=== PATIENT | male | born 1955 | race Caucasian/White ===

== ENCOUNTER 2018-02-27 08:46 | Day surgery (SDC) | payer OTHER ==
[2018-02-26 17:50] VITALS: BMI 37.2
[2018-02-27] MEDS ORDERED: Oxymetazoline HCl 0.05% ( 15 ML ) ONE ×2 (10:51→12:19)
[2018-02-27] MEDS ORDERED: Lidocaine 1% w/Epinephrine 1:100K 30 ML VIAL ONE (12:19)
[2018-02-27] MEDS ORDERED: Fentanyl 100 MCG/2 ML VIAL ONE ×4 (12:25→15:40)
[2018-02-27] MEDS ORDERED: Famotidine/PF 20 mg/2ml Vial ONE (12:58)
[2018-02-27] MEDS ORDERED: Bacitracin Zinc Ointment 30 gm TUBE ONE (13:05)
[2018-02-27] MEDS ORDERED: Promethazine HCl 25 MG/ML VIAL ONE (14:14)
[2018-02-27] MEDS ORDERED: HYDROcodone/Acetaminophen 5/325 mg Tablet ONE (16:25)
--- NOTE | 2018-02-28 10:22 | OP ---
DATE OF PROCEDURE: 02/27/2018 PREOPERATIVE DIAGNOSES: 1. Chronic rhinosinusitis. 2. Nasal septal deviation. 3. Bilateral inferior turbinate hypertrophy. 4. Nasal obstruction. POSTOPERATIVE DIAGNOSES: 1. Chronic rhinosinusitis. 2. Nasal septal deviation. 3. Bilateral inferior turbinate hypertrophy. 4. Nasal obstruction. PROCEDURES: 1. Bilateral endoscopic sinus surgery, total ethmoidectomies. 2. Bilateral endoscopic sinus surgery, maxillary antrostomies. 3. Bilateral endoscopic sinus surgery, frontal sinusotomies. 4. Bilateral endoscopic sinus surgery, sphenoidotomies. 5. Nasal septoplasty. 6. Bilateral inferior turbinate submucosal resection. SURGEON: Troy Delacruz M.D. ESTIMATED BLOOD LOSS: 50 mL. COMPLICATIONS: None. ANESTHESIA: GETA. PROCEDURE IN DETAIL: Patient was taken to the operating room and placed supine on the table. General endotracheal anesthesia was obtained by the Anesthesia staff. Tube was secured in the left lower lip. Patient was then placed in the beach chair position, and Afrin pledgets were placed in the nasal cavity. Injections of 1% lidocaine with 1:100,000 epinephrine were made into the nasal septum as well as the inferior turbinates. Patien t was then prepped and draped in standard surgical fashion for nasal surgery. Following this, the Afrin pledgets were removed. A Ki [place] incision was made on the left nasal septum. Submucoperichondrial dissection was performed. The deviated portions of the septum included portions of the cartilage and the bony septum. These isolate d areas were removed using three cutting rongeurs. There was noted to be a large dorsal and caudal stru t, left intact for support of the nose. The mucoperichondrial flaps were then reapproximated using a 4-0 gut stitch. Any straight pieces of cartilage were crushed prior to this and placed between the mucoperichondrial flaps. Following this, the inferior turbinates were then punctured with a submucosa l coblation wand, and submucosal coblations were performed of multiple areas of the inferior portion of the anterior inferior turbinate. Please note that the submucosal microdebrider was used to submucosally resect the anterior and inferi or portions of the inferior turbinates bilaterally. Following this, the inferior turbinates were lat erally fractured. Following this, the 0 degree scope was advanced into the middle meatus. The middl e turbinates were identified bilaterally and were gently medialized with a [place] elevator. Following this, the uncinate process was anteriorly fractured using the ball-ended probe. Following this, the uncinate process was removed bilaterally using the 0 degree microdebrider and the upbiting [place] forceps. Following this, the natural maxillary sinus ostia was identified using the ball-ended prob e and was gently widened using the 0 degree microdebrider and the straight [place] forceps. Follow ing this, the ethmoidal bulla was identified and was punctured on its medial and inferior aspect with the microdebrider and was removed using the microdebrider and upbiting [place] forceps bilaterally . Following this, the grand lamella was identified and was punctured into the posterior ethmoidal ce lls. Working from posterior to anterior, the ethmoidal cells were opened in a mucosal-sparing techni que using the straight microdebrider and upbiting [place] forceps. This was performed bilaterally. Following this, the sphenoid sinuses were approached through the previous ethmoidectomies where the natural sphenoid ostia was identified and was gently widened using the microdebrider medially and in feriorly. This was performed bilaterally. Following this, 45-degree endoscope and the 40-degree rad enoid microdebrider blade was used to further identify and open the frontal sinus ostia cells bilater ally. Following this, the nasal cavity was irrigated, MeroPacks were placed in the middle meatus. D oyle splints were placed and secured. The patient tolerated the procedure well.
--- NOTE | 2018-02-28 16:57 | EKG ---
Test Reason : PREOP Blood Pressure : / mmHG Vent. Rate : 089 BPM Atrial Rate : 089 BPM P-R Int : 152 ms QRS Dur : 128 ms QT Int : 388 ms P-R-T Axes : 057 050 014 degrees QTc Int : 472 ms Normal sinus rhythm Right bundle branch block Abnormal ECG Confirmed by TEO PETERSON ([id number]) on 02/28/2018 4:57:16 PM Referred By: CRISTÓBAL Confirmed By:TEO PETERSON
== END 2018-02-27 17:05 | disposition home or self-care (01) ==
LOC: SDC 08:46
PROVIDERS: ATTEND Otolaryngology Plastic Surgery within the Head & Neck
PROC: 09TU8ZZ Resection of Right Ethmoid Sinus, Via Natural or Artificial Opening Endoscopic (ICD-10-PCS; principal; 2018-02-27)
PROC: 09TV8ZZ Resection of Left Ethmoid Sinus, Via Natural or Artificial Opening Endoscopic (ICD-10-PCS; principal; 2018-02-27)
PROC: 09BM8ZZ Excision of Nasal Septum, Via Natural or Artificial Opening Endoscopic (ICD-10-PCS; principal; 2018-02-27)
DX: J32.4 Chronic pansinusitis (principal); J34.2 Deviated nasal septum; J34.3 Hypertrophy of nasal turbinates; J30.9 Allergic rhinitis, unspecified; Z79.4 Long term (current) use of insulin; Z79.899 Other long term (current) drug therapy
CPT/HCPCS: 88305; 93005; 93010; 96374; 96375; J2001; J2550; J3010; S0028